=== PATIENT | male | born 1955 | race Two or more races ===

== ENCOUNTER 2020-11-20 09:09 | Day surgery (SDC) | payer OTHER | END 2020-11-20 17:50 | disposition home or self-care (01) | LOC: AMB-ENDOS 09:09 | PROVIDERS: ATTEND Colon & Rectal Surgery | DX: K57.32 Diverticulitis of large intestine without perforation or abscess without bleeding (principal); K64.0 First degree hemorrhoids; Z20.822 Contact with and (suspected) exposure to COVID-19 ==

== ENCOUNTER 2020-12-23 10:00 | Inpatient (IN) | payer OTHER ==
[~2020-12-23] VITALS: Ht 172.7 cm; Wt 78.5 kg
[2020-12-23] MEDS ORDERED: ATORVASTATIN CA20 MG PO (15:35)
[2020-12-23] MEDS ORDERED: GLIPIZIDE XL5 MG PO (15:35)
[2020-12-23] MEDS ORDERED: TAMS0.4C PO (15:35)
[2020-12-29] MEDS ORDERED: VALACYCLOVIR500 MG (09:52)
[2020-12-29] MEDS ORDERED: WAL-DRYL ALLERG25 MG (09:52)
[2020-12-29] MEDS ORDERED: MONTELUKAST SOD10 MG (09:52)
[2021-01-01] MEDS ORDERED: ATORVASTATIN CA20 MG PO (16:51)
[2021-01-01] MEDS ORDERED: TAMS0.4C PO (16:51)
[2021-01-01] MEDS ORDERED: GLIPIZIDE XL5 MG PO (16:51)
== END 2021-01-01 17:02 | disposition home or self-care (01) | DRG 331 ==
LOC: O/R 12-29 05:35 → SURG 12-29 05:35 → SURH 12-29 07:00 → SURG 12-29 11:57
PROVIDERS: ADMIT Colon & Rectal Surgery; ATTEND Colon & Rectal Surgery
PROC: 0DBN4ZZ Excision of Sigmoid Colon, Percutaneous Endoscopic Approach (ICD-10-PCS; 2020-12-29)
PROC: 0DJD8ZZ Inspection of Lower Intestinal Tract, Via Natural or Artificial Opening Endoscopic (ICD-10-PCS; 2020-12-29)
PROC: 0DTP4ZZ Resection of Rectum, Percutaneous Endoscopic Approach (ICD-10-PCS; principal; 2020-12-29 07:00)
DX: K57.90 Diverticulosis of intestine, part unspecified, without perforation or abscess without bleeding (principal); E11.9 Type 2 diabetes mellitus without complications; E78.5 Hyperlipidemia, unspecified; J45.20 Mild intermittent asthma, uncomplicated; D64.9 Anemia, unspecified; K43.2 Incisional hernia without obstruction or gangrene